=== PATIENT | male | born 1965 ===

== ENCOUNTER 2025-05-29 06:24 | Day surgery (SDC) | payer BC, SELFPAY | END 2025-05-29 16:20 | disposition home or self-care (01) | LOC: GI 06:24 | PROVIDERS: ATTENDING PHYSICIAN Internal Medicine Gastroenterology | DX: Z12.11 Encounter for screening for malignant neoplasm of colon (principal); K63.5 Polyp of colon; Z86.0100 Personal history of colon polyps, unspecified | CPT/HCPCS: 45385; 88305 ==